=== PATIENT | female | born 1970 ===

== ENCOUNTER 2021-02-14 07:30 | Outpatient (RCR) | payer BC, SELFPAY ==
--- NOTE | 2020-12-19 15:38 | OTOPEVAL ---
OCCUPATIONAL THERAPY INITIAL EVALUATION: 12/19/2020 Thank you for referring Teagan Bradshaw to [facility].? The patient is scheduled to be seen for therapy? 1-2x/week for 4 weeks. Please review, sign, date and return this plan of care [facility]. I agree with and certify that the following plan of care is medically necessary. Referring Physician Date Attending Provider: Per Sherwood MD *OT Outpatient Evaluation Start: 12/19/20 13:59 Freq: Status: Active Protocol: Document 12/19/20 14:29 KJL (Rec: 12/19/20 15:37 KJL [email or web address]) Therapy Assessment Status Assessment Status Assessment Status Evaluation Evaluation Information Problem Diagnosis lateral epicondylitis Onset september 2020 Additional Evaluation Detail After MD visit in August was diagnosed with Carpal tunnel syndrome and was issued a pre- eli wrist cockup brace to be worn at night. In early september, began having lateral epicondylitis symptoms. 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 Dominance Right Activity of Daily Living Ability Independent Indoor/Home Mobility Independent Community Mobility Independent Stairs Ability Independent Functional Cognition (Planning, Shopping Independent , Taking Medications) Cooking Yes Cleaning Yes Laundry Yes Shopping Yes Driving Yes Home Setting Home Type House,Multiple Levels Environmental Barriers Stairs, Greater than 4 Living Situation Alone Support Available Local Family Support,Neighbor/ Friend Support Mobility Assistive Devices (Used Last 3 None Months) Bathroom Environment Bathtub, Standard,Tub/Shower, Curtain Pain Assessment Timing of Pain Assessment Timing of Pain Assessment Assessment Pain Scale Pain Scale Used
--- NOTE | 2021-01-16 08:28 | OTOPEVAL ---
OCCUPATIONAL THERAPY RE-EVALUATION AND POC UPDATE 01/16/21 Patient presents today for OT re-evaluation after attending the initial evaluation and 2 follow up visits. Measurments today show decreased symptoms of lateral epicondylitis and she verbalizes good understanding of HEP, improved body mechanics at work, and use of resting and icing periodically at work to help with the repetitive strain injury. Continued skilled OT indicated for progression of HEP, gentle progressive strengthening, and continued use of modalities and manual therapy for reduced pain/inflammation to facilitate optimal function and reduced pain. Thank you for referring Teagan Bradshaw to [facility].? The patient is scheduled to be seen for therapy? 1-2x/week for 4 weeks. Please review, sign, date and return this plan of care [facility]. I agree with and certify that the following plan of care is medically necessary. Referring Physician Date Referring Provider: Per Sherwood MD *OT Outpatient Evaluation Start: 12/19/20 13:59 Therapy Assessment Status Assessment Status Assessment Status Re-evaluation Evaluation Information Problem Diagnosis Right lateral epicondylitis Onset September 2020 Additional Evaluation Detail Patient began therapy on and has only been able to attend 2 follow up appointments due to her work schedule. Subjective Information Patient reports that the elbow Query Text:As Reported By Patient/ has been making improvements Family pain-diamond. She states she is more aware of how to take care of the pain with massage, stretching, and ROM. She is more aware of her body mechanics with lifting items at work and the laundry basket at home. She also reports that being able to use the right arm for cooking, cleaning, and washing her hair has become easier, however she continues to have pain with these tasks. She wears a tennis elbow brace/strap when working and does take breaks at work to ice her elbow. Pain Assessment Timing of Pain Assessment Timing of Pain Assessment Assessment Pain Scale Pain Scale Used Numeric (1 - 10) Self Report Pain Assessment Right Elbow(s) Reported Pain Level 2 Pain Description Aching,Soreness Lowest Pain Intensity 0 Greatest Pain Intensity 7 Other Pain Aggravating Factors Working - Repetitive lifting Pain Score Pain Score 2: Self Repo
--- NOTE | 2021-02-14 08:01 | OTOPEVAL ---
OCCUPATIONAL THERAPY RE-EVALUATION REPORT AND DISCHARGE SUMMARY 02/14/2021 Teagan presents today for her final OT re-evaluation following 10 sessions of therapy for lateral epicondylitis. At this time the patient's symptoms have subsided with the occasional increase in pain during ADLs (rates the pain at 1/10). She is independent with stretching, massage, and gentle strengthening as well as activity modification and use of tennis elbow strap during repetitive activities. Recommend that the patient continue with this home program independently. She verbalizes good understanding and is in agreement with D/C. Discharging today with goals met. Thank you for referring Teagan Bradshaw to [facility]. Please review, sign, date and return this plan of care [facility]. I agree with and certify that the following plan of care is medically necessary. Referring Physician Date Referring Provider: Per Sherwood MD *OT Outpatient Evaluation Start: 12/19/20 13:59 Therapy Assessment Status Assessment Status Assessment Status Re-evaluation Evaluation Information Problem Diagnosis Right lateral epicondylitis Onset September 2020 Additional Evaluation Detail Patient began therapy on 12/19/20 and she has attended 10 treatment sessions focused on right UE strengthening and reduced pain via modalities, stretching, and manual therapy. Patient has been compliant with all materials. Subjective Information Patient reports that she no Query Text:As Reported By Patient/ longer has pain on a regular Family basis. She is now able to complete everyday tasks, such as bathing, dressing cooking, cleaning, and laundry without pain most of the time . States that when she is doing a repetitive task, such as sewing/cutting, she will wear her tennis elbow brace. She reports good understanding of HEP and how to manage her lateral epicondylitis symptoms. Pain Assessment Timing of Pain Assessment Timing of Pain Assessment Re-assessment Pain Scale Pain Scale Used Numeric (1 - 10) Self Report Pain Assessment Right Elbow(s) Reported Pain Level 0 Lowest Pain Intensity 0 Greatest Pain Intensity 3 Pain Score Pain Score 0: Self Report Additional Pain Score Comments Reports some tightness/ stiffness when waking up in the morning. 1/10 pain with ADLs. Upper Extremity Range
== END 2021-03-04 15:24 | disposition home or self-care (01) ==
LOC: ANHOT 07:30
PROVIDERS: PCP Urology
DX: M77.11 Lateral epicondylitis, right elbow (principal)
CPT/HCPCS: 97018; 97035; 97110; 97140; 97165